=== PATIENT | male | born 2005 | race Two or more races ===

== ENCOUNTER 2025-03-11 13:25 | Day surgery (SDC) | payer OTHER ==
[2025-03-11] MEDS: LACTATED RINGERS SOLUTION 1,000 ML IV STA (14:51)
[2025-03-11 14:59] LABS: ABSOLUTE IMMATURE GRANULOCYTES 0.03 x10^3/uL (0.0-0.031); BASOPHILS # 0.04 x10^3/uL (0.01-0.08); EOSINOPHIL % 0.5 % (0.8-7.0); EOSINOPHILS # 0.05 x10^3/uL (0.04-0.54); HEMATOCRIT 43.3 % (40.1-51.0); HEMOGLOBIN 14.4 g/dL (13.7-17.5); MCHC 33.3 g/dl (32.3-36.5); MEAN CELL VOLUME 86.9 fl (79.0-92.2); MEAN PLT VOLUME 10.1 fl (9.4-12.4); MONOCYTE # 0.67 x10^3/uL (0.30-0.82); MONOCYTE % 6.3 % (5.3-12.2); PLATELET COUNT 280 x10^3/uL (163-337); RDW 13.2 % (11.9-15.3)
[2025-03-11 15:24] LABS: POTASSIUM 3.8 mmol/L (3.5-5.1)
[2025-03-11 15:28] LABS: BLOOD UREA NITROGEN 13.3 mg/dL (7-18); CALCIUM 9.6 mg/dL (8.5-10.1)
[2025-03-11 15:29] LABS: ALBUMIN 4.7 g/dl (3.4-5.0)
[2025-03-11 15:33] LABS: BILIRUBIN,TOTAL 1.8 mg/dL (0.2-1)
[2025-03-11 15:34] LABS: TOT PROT 7.6 g/dl (6.4-8.2)
[2025-03-11 16:03] LABS: PH,URINE 6.5 (5.0-8.0); URINE APPEARANCE CLEAR; URINE BILIRUBIN NEGATIVE (NEGATIVE); URINE COLOR YELLOW; URINE GLUCOSE (UA) NEGATIVE (NEGATIVE); URINE KETONE NEGATIVE (NEGATIVE); URINE LEUK ESTERASE NEGATIVE (NEGATIVE); URINE NITRITE NEGATIVE (NEGATIVE); URINE PROTEIN NEGATIVE (NEGATIVE); URINE UROBILINOGEN 0.2 mg/dL (0.2-1.0)
[2025-03-11 16:21] LABS: HIV INTERPRETATION NEGATIVE (NEGATIVE)
[2025-03-11 16:22] LABS: HCV DIAGNOSTIC IN-HOUSE W/RFLX NON-REACTIVE (NONREACTIVE)
[2025-03-11] MEDS ORDERED: KETOROLAC TROMETHAMINE 15 MG/ML VIAL IVPUSH PRN (17:22)
[2025-03-11] MEDS ORDERED: PIPERACILLIN/TAZOB 4.5 GM 4.5 GM/100 ML BAG IVPB ONE (17:43)
[2025-03-11] MEDS: PIPERACILLIN/TAZOB 4.5 GM 4.5 GM in DEXTROSE 5%-WATER 100 ML IVPB ONE (18:00)
[2025-03-11] MEDS: LACTATED RINGERS SOLUTION 1,000 ML/1,000 ML INFUS.BAG IV SCH (18:00)
[2025-03-11] MEDS: ACETAMINOPHEN 1000 MG/100 ML BAG IVPB PRN (18:01)
[2025-03-11] MEDS: PIPERACILLIN/TAZOB 3.375 GM 3.375 GM in DEXTROSE 5%-WATER - 50 ML IVPB ONE (18:05)
[2025-03-11] MEDS ORDERED: ONDANSETRON 4 MG/2 ML VIAL IVPUSH PRN (18:58)
[2025-03-11] MEDS ORDERED: ACETAMINOPHEN 1000 MG/100 ML BAG IVPB PRN ×4 (20:45→23:49)
[2025-03-11 20:48] VITALS: BMI 17.2
[2025-03-11] MEDS ORDERED: morphine CARPU-JECT 2 MG/1 ML DISP.SYRIN IVPUSH PRN (21:42)
[2025-03-11] MEDS ORDERED: PIPERACILLIN/TAZOB 3.375 GM 3.375 GM in DEXTROSE 5%-WATER - 50 ML IVPB SCH (23:00)
[2025-03-11] MEDS: PIPERACILLIN/TAZOB 3.375 GM 50 ML IVPB SCH (23:47)
[2025-03-12] MEDS: LACTATED RINGERS SOLUTION 1,000 ML/1,000 ML INFUS.BAG IV SCH (01:36)
[2025-03-12] MEDS ORDERED: ROCURONIUM BROMIDE 50 MG/5 ML SYRINGE ONE (13:45)
[2025-03-12] MEDS ORDERED: LIDOCAINE HCL/PF 2% SDV 5ML VIAL ONE (13:45)
[2025-03-12] MEDS ORDERED: SUCCINYLCHOLINE CHLORIDE 200 MG/10 ML SYRINGE ONE (13:45)
[2025-03-12] MEDS ORDERED: PROPOFOL 20 ML ONE (13:45)
[2025-03-12] MEDS ORDERED: MIDAZOLAM HCL 2 MG/2 ML SINGLE DOSE VIAL ONE (13:45)
[2025-03-12] MEDS ORDERED: KETOROLAC TROMETHAMINE 30 MG/1 ML VIAL ONE ×2 (14:46→15:00)
[2025-03-12] MEDS ORDERED: ONDANSETRON 4 MG/2 ML VIAL ONE (14:46)
[2025-03-12] MEDS ORDERED: DEXAMETHASONE SOD PHOSPHATE 4 MG/1 ML VIAL ONE (14:46)
[2025-03-12] MEDS ORDERED: ONDANSETRON 4 MG/2 ML VIAL IVPUSH PRN ×3 (14:49→16:04)
[2025-03-12] MEDS ORDERED: PROMETHAZINE HCL 25 MG/1 ML VIAL IVPB PRN ×2 (14:49→16:04)
[2025-03-12] MEDS: BUPIVACAINE HCL/PF 0.25% (2.5MG/ML) 10 ML VIAL IJ ONE (14:57)
[2025-03-12] MEDS ORDERED: SUGAMMADEX SODIUM 200 MG/2 ML VIAL ONE (15:07)
[2025-03-12] MEDS ORDERED: oxyCODONE HCL 5 MG TABLET PO PRN (16:04)
[2025-03-12] MEDS ORDERED: ACETAMINOPHEN 1000 MG/100 ML BAG IVPB PRN (16:04)
[2025-03-12] MEDS: ACETAMINOPHEN 1000 MG/100 ML BAG IVPB ONE ×2 (16:11→18:30)
[2025-03-12 16:46] VITALS: BP 93/48; PULSE 63; RESP 17; TEMP 97.9
[2025-03-12] MEDS: LACTATED RINGERS SOLUTION 1,000 ML IV SCH ×2 (16:59→18:30)
[2025-03-12] MEDS: PIPERACILLIN/TAZOB 3.375 GM 3.375 GM in DEXTROSE 5%-WATER - 50 ML IVPB SCH (18:28)
[2025-03-12] MEDS ORDERED: ENOXAPARIN NA (PORCINE) 40 MG/0.4 ML DISP.SYRIN SQ SCH (22:00)
== END 2025-03-12 19:53 | disposition home or self-care (01) ==
LOC: JER 13:25 → SUATTDRO 17:15 → UNDOADMIN 17:15 → JASU-SURG 17:15 → JERBED 17:15 → UNDOADMIN 20:00 → J8W 20:00 → JERBED 20:06 → J8W 20:06 → JASU-SURG 03-12 19:53
PROVIDERS: ATTEND Nurse Practitioner Acute Care
PROC: 0DTJ4ZZ Resection of Appendix, Percutaneous Endoscopic Approach (ICD-10-PCS; principal; 2025-03-11)
DX: K35.80 Unspecified acute appendicitis (principal)
CPT/HCPCS: 36415; 74177-TC; 80053; 81003; 83690; 85025; 86803; 87389; 88304-TC; 94760; 99285-25; J0131; Q9967